=== PATIENT | male | born 1945 | race Caucasian/White ===

== ENCOUNTER → 2020-12-29 11:35 | Outpatient (CLI) | payer MEDICARE, SELFPAY ==
--- NOTE | 2020-12-29 11:37 | DI.US.S_ITS ---
PROCEDURE: US SCROTUM INDICATIONS: RIGHT SCROTAL ENLAGEMENT CONSISTENT WITH HYDROCELE TECHNIQUE: Real-time scanning was performed of the scrotum and testicles, with image documentation. Color and pulse Doppler interrogation was performed of both testicles. COMPARISON: None. FINDINGS: Right: Testicle is normal in size at 4.3 x 2.8 x 2.3 cm, and homogenous in echotexture. Large presumed spermatocele present measuring up to 14 cm with low level internal echoes within the fluid. No hydrocele or varicoceles. Overlying scrotal skin is normal in thickness. Left: Testicle is normal in size at 4.5 x 2.2 x 3.0 cm, and homogeneous in echotexture. Epididymis is normal in overall size and morphology. Multiple epididymal cysts, largest measuring 2.6 cm. No hydrocele or varicoceles. Overlying scrotal skin is normal in thickness. Doppler: Color and pulse Doppler demonstrate normal and symmetric arterial flow in both testicles. IMPRESSION: 1. Normal appearance of the testicles bilaterally. 2. Presumed large right spermatocele measuring up to 14 cm and there multiple left epididymal cysts. Dictated by: Vinicio MOLINA Interpreted: Roger Bull MD on 12/29/2020 at 13:21 Transcribed by: KEVRIN on 12/29/2020 at 13:23 Approved by: Roger Bull M.D. on 12/29/2020 at 14:46
== END ==
PROVIDERS: PCP Internal Medicine; Referring Provider Urology; Visit Provider Urology
DX: N43.3 Hydrocele, unspecified (principal); N50.3 Cyst of epididymis
CPT/HCPCS: 76870

== ENCOUNTER → 2021-01-03 08:17 | Outpatient (CLI) | payer MEDICARE, SELFPAY ==
[2021-01-03 10:01] LABS: COVID19 -Nasal RAPID Negative (Negative)
== END ==
PROVIDERS: PCP Internal Medicine; Referring Provider Specialist; Visit Provider Specialist
DX: Z20.822 Contact with and (suspected) exposure to COVID-19 (principal)
CPT/HCPCS: 87635; C9803

== ENCOUNTER 2021-01-05 06:24 | Day surgery (SDC) | payer MEDICARE, SELFPAY ==
[2020-12-28 13:12] VITALS: BMI 27.1
[2021-01-05] VITALS (10 sets, daily range): BP systolic 106–124; BP diastolic 60–77; PULSE 69–75; RESP 12–18; TEMP 36.4–36.9; O2SAT 95–99; BMI 27.1
--- NOTE | 2021-01-05 | PATH_ITS ---
[facility] Accession Number: [id number] . 01 Material submitted: . testis - SPERMATOCELE SAC . 01 Diagnosis: Spermatocele Sac: Cuboidal epithelial-lined fibrovascular tissue, consistent with hydrocele. Negative for neoplasia. MRV 01/09/2021 1501 Local . 01 Comment: Changes characteristic of a spermatocele are not seen; namely, ciliated epithelium and spermatozoa. . 01 Electronically signed: . Cindy Murrieta MD, Pathologist NPI- [id number] . 01 Gross description: . The specimen is received in formalin, labeled spermatocele sac, and consists of a 4.5 x 3.0 x 2.0 cm knight-pink fibromembranous fragment of soft tissue. Physical Therapist Clinic Director sections are submitted in cassette A1. ([id number]) /[facility] 01/06/2021 1858 Local . 01 Pathologist provided ICD-10: N43.3 . 01 CPT . 222380 Performed at: [facility] [address] [place] [address], [place], [place] [id number] MD Aldiar Hines MD Phone: [phone]
[2021-01-05] MEDS: LACTATED RINGERS 1,000 ML 42 ML IV (07:16)
[2021-01-05] MEDS: ACETAMINOPHEN 325 MG TABLET 975 MG PO (07:24)
[2021-01-05] MEDS: GABAPENTIN 300 MG CAPSULE PO (07:24)
--- NOTE | 2021-01-05 07:42 | PM.PREOP ---
Pre-operative Note COVID-19 COVID-19 status: Negative Result date/Date tested (Pos, Neg/Pending): 01/03/21 Interval Note History & Physical reviewed/Exam performed by Physician: Yes Changes to H&P: No
[2021-01-05] MEDS: CEFAZOLIN 1 GM VIAL 2 GM IV (07:54)
--- NOTE | 2021-01-05 08:21 | SUR.OPER ---
Supine on padded OR bed, head on pillow, arms secured on padded arm boards at <90 degrees abduction, legs uncrossed, safety belt at thigh, tape over blanket over lower legs.
[2021-01-05] MEDS: BUPIVACAINE 0.25% (PF) VIAL 30 ML INJ (08:28)
[2021-01-05] MEDS: BACITRACIN OINT 0.9 GM PCKT 1 APPLIC TOP (09:51)
[2021-01-05] MEDS: BACITRACIN 28 GM OINT 1 APPLIC TOP (10:04)
--- NOTE | 2021-01-05 10:27 | P.OP_ITS ---
Procedure & Clinicians Procedure: Right spermatocelectomy Same procedure as scheduled: Yes Indications: This is a 75-year-old patient who presented with complaints of an enlarged right hemiscrotum. An ultrasound was obtained and revealed findings consistent with either a large hydrocele or a large spermatocele. Patient was counseled regarding of repair of both. Had presents at this time for treatment of either the hydrocele or spermatocele depending on the intraoperative findings. Surgeon: Khang Carlos Click Yes if Unassisted: Yes Anesthesia Type: General Operative Notes Findings: Intraoperatively scrotum and penis were normal. The cord structures and testicle were normal. There was a small hydrocele and a large spermatocele. The spermatocele contained slightly milky fluid. No other adverse finding was noted. The sac was removed in its entirety and the neck was tied off. The sac was intimately applied to the other scrotal occupations. But was dissected off with minimal to moderate difficulty. The spermatocele contained 380 mL of fluid. Closure Type: primary Specimen(s): other (Spermatocele sac) Estimated Blood Loss (mL): 5 Blood products transfused: none Procedure in detail: Procedure in detail: After informed consent was obtained patient was identified and brought to the operating room. She was then placed in a supine position on the table and anesthesia was induced to maintain. Patient was then shaved, prepped, draped in a sterile fashion for right hydrocelectomy. After prepping and draping ensuring an adequate level of a nesthesia a transverse incision was made in the right hemiscrotum. This was done after marking the median relief a with a marking pen. With incision made the dissection was carried down through the layers of the dartos and the intrascrotal contents were delivered. It was apparent that this was a spermatocele. And dissection was begun around the base to free the spermatocele sac from the other scrotal occupations. It was determined that it would be easier to enter the sac and so an incision was made and some of the fluid was sucked out. The sac which was avascular was dissected off the surrounding tissues. Of this was done sequentially and and carefully to avoid the cord structures. The dissection was carried out with blunt sharp and electrocautery dissection. With the dissection down to the ?Neck? of the sac a 3-0 Vicryl was used to tie the neck off. The sac was excised. The points of bleeding were controlled with electrocautery. During the dissection to openings were made in the tunica vaginalis these were reapproximated with 3-0 chromic. Cord block was performed with 0.25% plain Marcaine. The wound was irrigated and points of bleeding were controlled with electrocautery. Testis was returned to the scrotum. The dartos was reapproximated with a running 2-0 chromic gut suture. The skin edges were infiltrated with 0.25% plain Marcaine. And the skin edges were reapproximated with an interrupted vertical mattress of 2-0 chromic. Bacitracin was applied and Telfa, fluffs and a scrotal for support for dressing. Patient was awakened having tolerated the procedure well patient to be discharged home and follow up my office in approximately 10 days. After the procedure phone call was made to the patient's instructions given regarding postoperative care. Complications: none Post-operative Condition: stable Disposition: PACU Plan for aftercare: Patient to be discharged to home
--- NOTE | 2021-01-05 10:55 | SUR.PHASEII ---
assumed care of pt from Pablo WHITTEN.
== END 2021-01-05 11:18 | disposition home or self-care (01) ==
PROVIDERS: PCP Internal Medicine; Referring Provider Urology; Visit Provider Urology
PROC: (CPT 54840; principal; 2021-01-05 07:45)
DX: N43.3 Hydrocele, unspecified (principal); N43.41 Spermatocele of epididymis, single; N40.1 Benign prostatic hyperplasia with lower urinary tract symptoms; N13.8 Other obstructive and reflux uropathy
CPT/HCPCS: 54840; 82962; J0690; J1100; J2405; J2704; J3010

== ENCOUNTER → 2022-06-13 10:38 | Outpatient (CLI) | payer MEDICARE, SELFPAY ==
[2022-06-13 12:46] LABS: Prostate Specific Antigen 0.486 ng/mL (0.10-4.00); Prostate Specific Antigen Scrn 0.486 ng/mL (0.1-4.0)
== END ==
PROVIDERS: PCP Internal Medicine; Referring Provider Urology; Visit Provider Urology
DX: Z12.5 Encounter for screening for malignant neoplasm of prostate (principal); R97.20 Elevated prostate specific antigen [PSA]
CPT/HCPCS: 36415; 84153; G0103

== ENCOUNTER → 2024-01-06 18:24 | Outpatient (CLI) | payer MEDICARE, SELFPAY ==
--- NOTE | 2024-01-06 18:28 | DI.MRI.S_ITS ---
PROCEDURE: MR FOOT RT WO CON INDICATIONS: Pain in right foot TECHNIQUE: Multiphasic, multisequence MRI of the forefoot was performed, without intravenous contrast administration. COMPARISON: None. FINDINGS: Image quality: Excellent. Bones and joints: [id number] midfoot and forefoot joint osteoarthritic changes are seen most notably involving 1st MTP joint. No acute fracture or dislocation. No metatarsal stress fractures. Edema is noted within lateral sesamoid bone of the 1st metatarsal head without definite fracture line. Soft tissues: The visualized plantar foot muscles demonstrate T2 hyperintense signal concerning for muscle strain versus myositis. No discrete intramuscular mass or fluid collection. Thickened flexor hallucis longus tendon at the level of 1st metatarsal head and neck area is seen. Rest of the flexor and extensor tendons appear intact, without tenosynovitis. The distal insertions of the peroneus brevis and longus tendons appear intact. The principal Lisfranc ligament appears intact. No soft tissue ganglion cysts or bursal fluid collections. Sagittal images demonstrate moderate grade partial-thickness tear involving lateral meniscal phalangeal ligament of 1st metatarsal head with proximal retraction of the lateral sesamoid suggestive of low to moderate grade turf toe injury. Soft tissue edema and swelling over dorsum of metatarsal bone is seen. No discrete drainable fluid collection. IMPRESSION: 1. [id number]-[id number]-[id number] midfoot and forefoot joint osteoarthritis. No acute fracture or dislocation. No metatarsal stress fractures. 2. Edema within lateral sesamoid of 1st metatarsal head with suggestion of moderate grade partial-thickness tear involving lateral sesamoid phalangeal ligament of 1st metatarsal head concerning for low to moderate grade turf toe injury. 3. Suggestion of myositis versus muscle strain involving visualized plantar foot muscles. No discrete soft tissue mass or intramuscular fluid collection. 4. Tendinosis involving flexor hallucis longus tendon at the level of 1st metatarsal head and neck and 1st MTP joint. Rest of the extensor and flexor tendons are intact. 5. Soft tissue swelling and edema over dorsal aspect of right foot. Dictated by: Lamont Calvillo M.D. on 01/07/2024 at 14:33 Approved by: Lamont Calvillo M.D. on 01/07/2024 at 14:38
== END ==
PROVIDERS: PCP Internal Medicine; Referring Provider Internal Medicine; Visit Provider Internal Medicine
DX: M19.071 Primary osteoarthritis, right ankle and foot (principal); M79.671 Pain in right foot; M25.474 Effusion, right foot
CPT/HCPCS: 73718

== ENCOUNTER 2024-05-02 10:06 | Emergency (ER) | payer MEDICARE, SELFPAY ==
[2024-05-02] VITALS (47 sets, daily range): BP systolic 99–159; BP diastolic 51–87; PULSE 95–152; RESP 0–54; TEMP 32–37.1; O2SAT 79–100; BMI 28.1
--- NOTE | 2024-05-02 | DI.RAD.S_ITS ---
PROCEDURE: XR CHEST 1V INDICATIONS: trouble breathing TECHNIQUE: One view of the chest was acquired. COMPARISON: [facility], , XR CHEST 1V, 05/02/2024, 10:34. FINDINGS: Surgical changes and devices: There is a stable right-sided PICC line. Truncation of the right distal clavicle can be seen. Lungs and pleura: Low lung volumes can be seen, with poorly defined interstitial type infiltrates, right worse than left. The lungs are better aerated on the current study than on the prior. No pneumothorax or large pleural effusion can be seen. Mediastinum: The cardiac contours are within normal limits. The aorta demonstrates calcification and tortuosity. Bones and chest wall: No suspicious bony lesions. Age-appropriate bony degenerative changes are seen. Overlying soft tissues appear unremarkable. IMPRESSION: Improved aeration since the prior examination, with persistent interstitial type infiltrates seen, right worse than left. Dictated by: Edward Hanson M.D. on 05/02/2024 at 14:35 Approved by: Edward Hanson M.D. on 05/02/2024 at 14:37
--- NOTE | 2024-05-02 10:32 | DI.RAD.S_ITS ---
PROCEDURE: XR CHEST 1V INDICATIONS: suspected sepsis TECHNIQUE: One view of the chest was acquired. COMPARISON: None. FINDINGS: Surgical changes and devices: A right-sided PICC line is seen, with the tip overlying the inferior aspect of the superior vena cava, 2 cm above the cavoatrial junction. Lungs and pleura: Patchy bilateral infiltrates are seen, which are most consolidated within the right lower lobe. Low lung volumes are noted. This causes a crowded appearance to the lung markings and limits evaluation. No pneumothorax or large pleural effusion can be seen. Mediastinum: Mediastinal contours appear normal. Heart size is mildly enlarged. Bones and chest wall: No suspicious bony lesions. Age-appropriate bony degenerative changes are seen. Mild levoconvex scoliotic curvature is noted. Overlying soft tissues appear unremarkable. IMPRESSION: Patchy bilateral infiltrates are seen, with a degree of consolidation seen at the right lung base. Differential diagnosis includes infectious consolidation as well as pulmonary edema. The tip of the right-sided PICC line can be seen overlying the inferior aspect of the superior vena cava. Dictated by: Edward Hanson M.D. on 05/02/2024 at 9:58 Approved by: Edward Hanson M.D. on 05/02/2024 at 10:00
--- NOTE | 2024-05-02 10:36 | EKG_ITS ---
[place] [id number] [place] [id number] Test Date: 2024-05-02 Pat Name: Enrrique Hummel Department: 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
[2024-05-02] MEDS: SODIUM CHLORIDE 0.9% 1,000 ML 1000 ML IV (10:38)
[2024-05-02 10:39] LABS: Add Manual Diff / Slide Review NO; Basophils Absolute Auto 100 /uL (0-100); Basophils Percent Auto 0.5 % (0-2); Eosinophils Absolute Auto 1500 /uL (0-450); Eosinophils Percent Auto 8.8 % (2-4); Hematocrit 36.4 % (41-53); Lymphocytes Absolute Auto 1900 /uL (1100-4500); Lymphocytes Percent Auto 11.2 % (25-40); Mean Corpuscular Hemoglobin 29.8 PG (26-34); Mean Corpuscular Volume 90.3 fL (80-100); Monocytes Absolute Auto 700 /uL (0-900); Monocytes Percent Auto 3.8 % (3-14); Neutrophils Absolute Auto 12900 /uL (1500-7000); Neutrophils Percent Auto 75.7 % (50-75); Platelet Count 698 X10^3/uL (150-400); Red Blood Cell Count 4.04 X10^6/uL (4.5-5.9); Red Cell Distribution Width 15.3 % (11.6-14.8)
--- NOTE | 2024-05-02 10:41 | DI.CT.S_ITS ---
PROCEDURE: CT HEAD/BRAIN WO CON INDICATIONS: confusion TECHNIQUE: Noncontrast 4.5 mm thick angled axial sections acquired from the foramen magnum to the vertex, with coronal and sagittal reformats. For radiation dose reduction, the following was used: automated exposure control, adjustment of mA and/or kV according to patient size. COMPARISON: None. FINDINGS: Image quality: Diagnostic. CSF spaces: Basal cisterns are patent. No extra-axial fluid collections. The ventricles are symmetric in size and shape. Brain: No intracranial bleeds or masses. There is cerebral volume loss for age, with resultant ventricular and sulcal prominence. There are periventricular and deep white matter chronic small vessel ischemic changes. There is intracranial internal carotid artery atherosclerosis. Skull and face: Calvarium and visualized facial bones appear intact, without suspicious lesions. Sinuses: At least moderate mucosal thickening can be seen within the maxillary sinuses and the sphenoid sinuses. Milder mucosal can be seen elsewhere within the paranasal sinuses. No abnormal fluid is seen within the mastoid air cells. IMPRESSION: No acute intracranial pathology. Paranasal sinus disease noted. Dictated by: Edward Hanson M.D. on 05/02/2024 at 10:15 Approved by: Edward Hanson M.D. on 05/02/2024 at 10:16
[2024-05-02 10:45] LABS: INR 1.3 (0.9-1.3); Prothrombin Time 14.5 SECONDS (9.4-12.5)
[2024-05-02 10:48] LABS: Lactate (Lactic Acid) 1.4 mmol/L (0.7-2.1); PTT Partial Thromboplastin Tim 26 SECONDS (25.1-36.5)
[2024-05-02 10:49] LABS: Alanine Aminotransferase 43 IU/L (<50); Albumin 3.3 g/dL (3.5-5.0); Albumin Globulin Ratio 0.8 (1.0-2.8); Alkaline Phosphatase 93 U/L (38-126); Aspartate Aminotransferase 45 IU/L (17-59); BUN Creatinine Ratio 19.1 (6-22); Bilirubin Total 0.5 mg/dL (0.2-1.3); Blood Urea Nitrogen 33 mg/dL (9-20); Calcium 11.7 mg/dL (8.4-10.2); Carbon Dioxide 26 mmol/L (22-32); Chloride 100 mmol/L (98-107); Estimated Glomerular Filt Rate 40 mL/min (>60); Globulin 4.3 g/dL (1.7-4.1); Glucose 113 mg/dL (80-110); HEMOLYSIS < 15 (0-50); Lipase 200 U/L (23-300); Potassium 3.8 mmol/L (3.4-5.1); Sodium 135 mmol/L (137-145); Total Protein 7.6 g/dL (6.3-8.2)
[2024-05-02 11:05] LABS: Procalcitonin 0.142 ng/mL (<0.5)
--- NOTE | 2024-05-02 11:26 | ED_ITS ---
HPI - Altered Mental Status General Chief Complaint: Altered Mental Status Stated Complaint: Confusion Time Seen by Provider: 05/02/24 10:41 Mode of arrival: EMS History of Present Illness HPI narrative: 78-year-old male status post recent right foot external fixator surgery, ongoing infection, followed by [facility], PICC line in place with IV antibiotics infused daily per , noted by to have 2 days duration of cough, seemed newly confused yesterday with worse confusion today. He has not usually on oxygen, had low oxygen pulse ox readings at home 84-92% varied. relays complicated infectious disease history, pneumonia 1 or 2 years ago, possible lung mass, had bronchoscopy and repeat CT chest imaging, possible MRSA infection, felt to be scar tissue. More recently September 2023 had ankle pain, podiatry consult, orthopedic surgery consult, MRI study, eventually last month March 2024 had ongoing infectious disease consultation, bone biopsy, possible osteomyelitis, IV antibiotics via PICC line, no internal fixation for suspected malunion or stress fracture foot area, underwent external fixator surgery by Podiatry at [facility] proximally now 6 weeks ago, still having daily IV antibiotics via PICC line. does not know the name of the daily antibiotic, does not recognize vancomycin or ceftriaxone or Levaquin antibiotics by name, she will retrieve the information from home. Fall 2 days ago, no known head injury. Recent respiratory illness noted. No incontinence of urine. No seizure activity. No drug or alcohol use known. He has not usually confused. He has not usually on oxygen at home. Related Data Home Medications Medication Instructions Recorded Confirmed cholecalciferol (vitamin D3) 50 50 mcg PO DAILY 12/22/20 06/15/22 mcg (2,000 unit) tablet ferrous gluconate 1 tab PO DAILY 12/22/20 06/15/22 finasteride 5 mg tablet 5 mg PO DAILY 12/22/20 06/15/22 multivitamin 1 tab PO DAILY 12/22/20 06/15/22 naproxen sodium 220 mg capsule 220 mg PO DAILY 12/22/20 06/15/22 (Aleve) tamsulosin 0.4 mg capsule (Flomax) 0.4 mg PO DAILY 12/22/20 06/15/22 turmeric 400 mg capsule 1,000 mg PO DAILY 12/22/20 06/15/22 Allergies Allergy/AdvReac Type Severity Reaction Status Date / Time No Known Drug Allergies Allergy Verified 10/11/21 09:07 Review of Systems Review of Systems Narrative: See HPI Patient History Medical History (Updated 05/02/24 @ 17:08 by Semaj Rivera MD) Spermatocele BPH w urinary obs/LUTS Right hydrocele Surgical History History of hydrocelectomy History of knee replacement Hx of appendectomy Social History marital status: number of children: 0 household members: spouse Smoking Status: Never smoker alcohol intake: current caffeine: Yes Type(s) of exercise: bicycling Smoking Status: Never smoker alcohol intake frequency: 0-2 drinks per day Substance Use Type: does not use Exam Narrative Exam Narrative: GENERAL: Well-developed patient, in mild distress. HEAD: Atraumatic. Normocephalic. EYES: Pupils equal round and reactive. Extraocular motions intact. No scleral icterus. No injection or drainage. ENT: Nose without bleeding, purulent drainage. Throat without erythema, tonsillar hypertrophy or exudate. Airway patent. NECK: Trachea midline. Non tender CARDIOVASCULAR: Irregularly irregular, 2/6 systolic murmur noted ( says that he has a known murmur), no obvious rub RESPIRATORY: Clear to auscultation. Crackles [id number]-[id number]-left base, no obvious wheeze, no respiratory distress, no retractions, speaks in full sentences. GASTROINTESTINAL: Abdomen soft, non-tender, nondistended. EXTREMITIES: External fixator left lower extremity ankle foot area in place, visible PEG sites not obviously red or inflamed, without obvious edema. No obvious redness or lymphangitis streaking RLE BACK: Nontender without deformity or crepitance. No flank tenderness. NEURO: AOx3. Motor functions grossly nonfocal SKIN: No rash or erythema of visible areas Initial Vital Signs Initial Vital Signs: Vital Signs Temperature 98.2 F 05/02/24 10:33 Pulse Rate 113 H 05/02/24 10:33 Respiratory Rate 26 H 05/02/24 10:33 Blood Pressure 121/61 05/02/24 10:33 Pulse Oximetry 90 L 05/02/24 10:33 Oxygen Delivery Method Room Air 05/02/24 10:33 Course Orders Ordered: Discontinued Medications Doxycycline Hyclate (Doxycycline Hyclate 100 Mg Tablet) 100 mg PO NOW ONE Stop: 05/02/24 13:21 Last Admin: 05/02/24 14:12 Dose: 100 mg Documented By: KALIA Furosemide (Furosemide 40 Mg/4 Ml Vial) 40 mg IV NOW ONE Stop: 05/02/24 15:11 Last Admin: 05/02/24 15:29 Dose: 40 mg Documented By: GERRY Sodium Chloride (Normal Saline 0.9%) 1,000 mls @ 1,000 mls/hr IV BOLUS ONE Stop: 05/02/24 11:31 Last Infusion: 05/02/24 11:28 Dose: Infused Documented By: Admin: 05/02/24 10:38 Dose: 1,000 mls/hr Documented By: GERRY Ceftriaxone Sodium 1,000 mg/ (Sodium Chloride) 100 mls @ 200 mls/hr IV NOW ONE Stop: 05/02/24 13:21 Last Infusion: 05/02/24 15:01 Dose: Infused Documented By: Admin: 05/02/24 14:12 Dose: 200 mls/hr Documented By: KALIA Vancomycin HCl 2,000 mg/ (Sodium Chloride) 500 mls @ 250 mls/hr IV NOW ONE Stop: 05/02/24 14:03 Last Infusion: 05/02/24 18:11 Dose: Infused Documented By: Admin: 05/02/24 14:45 Dose: 250 mls/hr Documented By: GERRY Lorazepam (Lorazepam 2 Mg/Ml Inj) 1 mg IV NOW ONE Stop: 05/02/24 18:24 Last Admin: 05/02/24 18:46 Dose: 1 mg Documented By: GERRY Ondansetron HCl (Ondansetron 4 Mg/2 Ml Inj) 4 mg IV NOW PRN PRN Reason: Nausea And Vomiting Ondansetron HCl (Ondansetron 4 Mg Odt) 4 mg SL NOW PRN PRN Reason: Nausea And Vomiting Vital Signs Vital signs: Vital Signs - 8 hr 05/02/24 10:33 05/02/24 10:43 05/02/24 11:00 Temperature 98.2 F Pulse Rate 113 H 109 H 97 H Respiratory Rate 26 H 29 H 0 L Blood Pressure 121/61 Pulse Oximetry 90 L 93 95 Oxygen Delivery Method Room Air Oxygen Flow Rate 2 Fraction of Inspired Oxygen 05/02/24 11:24 05/02/24 11:24 05/02/24 11:30 Temperature Pulse Rate 101 H 96 H Respiratory Rate 31 H 29 H Blood Pressure 131/70 Pulse Oximetry 94 94 Oxygen Delivery Method Oxygen Flow Rate Fraction of Inspired Oxygen 05/02/24 11:30 05/02/24 11:40 05/02/24 11:40 Temperature Pulse Rate 109 H Respiratory Rate 30 H Blood Pressure 131/67 125/70 Pulse Oximetry 93 Oxygen Delivery Method Oxygen Flow Rate Fraction of Inspired Oxygen 05/02/24 11:50 05/02/24 11:50 05/02/24 12:00 Temperature Pulse Rate 117 H 95 H Respiratory Rate 21 31 H Blood Pressure 117/74 Pulse Oximetry 94 93 Oxygen Delivery Method Nasal Cannula Oxygen Flow Rate 2 Fraction of Inspired Oxygen 05/02/24 12:15 05/02/24 12:15 05/02/24 12:20 Temperature Pulse Rate 108 H 107 H Respiratory Rate 28 H 26 H Blood Pressure 132/72 Pulse Oximetry 91 92 Oxygen Delivery Method Oxygen Flow Rate Fraction of Inspired Oxygen 05/02/24 12:20 05/02/24 12:30 05/02/24 12:30 Temperature Pulse Rate 103 H Respiratory Rate 27 H Blood Pressure 127/74 133/77 Pulse Oximetry 94 Oxygen Delivery Method Oxygen Flow Rate Fraction of Inspired Oxygen 05/02/24 12:40 05/02/24 12:40 05/02/24 12:50 Temperature Pulse Rate 103 H Respiratory Rate 26 H Blood Pressure 127/71 130/77 Pulse Oximetry 95 Oxygen Delivery Method Oxygen Flow Rate Fraction of Inspired Oxygen 05/02/24 12:50 05/02/24 13:00 05/02/24 13:00 Temperature Pulse Rate 101 H 103 H Respiratory Rate 27 H 28 H Blood Pressure 123/75 Pulse Oximetry 94 95 Oxygen Delivery Method Oxygen Flow Rate Fraction of Inspired Oxygen 05/02/24 13:10 05/02/24 13:10 05/02/24 13:20 Temperature Pulse Rate 100 H 100 H Respiratory Rate 26 H 26 H Blood Pressure 119/75 Pulse Oximetry 92 95 Oxygen Delivery Method Oxygen Flow Rate Fraction of Inspired Oxygen 05/02/24 13:20 05/02/24 13:30 05/02/24 13:33 Temperature Pulse Rate 100 H 100 H Respiratory Rate 26 H 29 H Blood Pressure 129/74 Pulse Oximetry 95 94 Oxygen Delivery Method Oxygen Flow Rate Fraction of Inspired Oxygen 05/02/24 13:33 05/02/24 13:40 05/02/24 13:40 Temperature Pulse Rate 101 H Respiratory Rate 28 H Blood Pressure 130/74 135/78 Pulse Oximetry 95 Oxygen Delivery Method Oxygen Flow Rate Fraction of Inspired Oxygen 05/02/24 13:50 05/02/24 13:50 05/02/24 14:00 Temperature Pulse Rate 101 H 98 H Respiratory Rate 29 H 28 H Blood Pressure 132/73 Pulse Oximetry 92 91 Oxygen Delivery Method Oxygen Flow Rate Fraction of Inspired Oxygen 05/02/24 14:00 05/02/24 14:10 05/02/24 14:10 Temperature Pulse Rate 97 H Respiratory Rate 16 Blood Pressure 129/69 120/64 Pulse Oximetry 92 Oxygen Delivery Method Oxygen Flow Rate Fraction of Inspired Oxygen 05/02/24 14:20 05/02/24 14:20 05/02/24 14:30 Temperature Pulse Rate 97 H 95 H Respiratory Rate 23 Blood Pressure 123/67 Pulse Oximetry 92 Oxygen Delivery Method Oxygen Flow Rate Fraction of Inspired Oxygen 05/02/24 14:30 05/02/24 14:40 05/02/24 14:40 Temperature Pulse Rate 96 H Respiratory Rate 26 H Blood Pressure 120/58 L 134/65 Pulse Oximetry 93 Oxygen Delivery Method Nasal Cannula Oxygen Flow Rate 2 Fraction of Inspired Oxygen 05/02/24 14:55 05/02/24 14:55 05/02/24 15:00 Temperature Pulse Rate 136 H 119 H Respiratory Rate 54 H 34 H Blood Pressure 136/51 L Pulse Oximetry 79 L 91 Oxygen Delivery Method Nasal Cannula Non -Rebreather Oxygen Flow Rate 2 15 Fraction of Inspired Oxygen 05/02/24 15:00 05/02/24 15:10 05/02/24 15:10 Temperature Pulse Rate 119 H Respiratory Rate 36 H Blood Pressure 119/57 L 125/63 Pulse Oximetry 94 Oxygen Delivery Method Non -Rebreather Oxygen Flow Rate 15 Fraction of Inspired Oxygen 05/02/24 15:36 05/02/24 16:41 Temperature Pulse Rate Respiratory Rate Blood Pressure 137/75 159/82 H Pulse Oximetry Oxygen Delivery Method Oxygen Flow Rate Fraction of Inspired Oxygen 40 40 MDM - Altered Mental Status Lab Data Attestation: I reviewed the patient's lab results. Lab results narrative: White blood cell count 75909, hemoglobin 12, platelets [id number]. Basic metabolic panel shows BUN 33 with creatinine 1.73, glucose 113. LFTs normal, lipase normal. Lactate 1.4 normal 05/02/24 10:30 05/02/24 10:30 Labs: Lab Results 05/02/24 05/02/24 Range/Units 10:30 15:52 WBC 17.0 H (4.5-11.0) X10^3/uL RBC 4.04 L (4.5-5.9) X10^6/uL Hgb 12.0 L (13.5-17.5) g/dL Hct 36.4 L (41-53) % MCV 90.3 (80-100) fL MCH 29.8 (26-34) PG MCHC 33.0 (30-36) % RDW 15.3 H (11.6-14.8) % Plt Count 698 H (150-400) X10^3/uL Neut % (Auto) 75.7 H (50-75) % Lymph % (Auto) 11.2 L (25-40) % Curry % (Auto) 3.8 (3-14) % Eos % (Auto) 8.8 H (2-4) % Baso % (Auto) 0.5 (0-2) % Neut # (Auto) 48759 H (0198-9045) /uL Lymph # (Auto) 1900 (4705-1023) /uL Curry # (Auto) 700 (0-900) /uL Eos # (Auto) 1500 H (0-450) /uL Baso # (Auto) 100 (0-100) /uL PT 14.5 H (9.4-12.5) SECONDS INR 1.3 (0.9-1.3) APTT 26 (25.1-36.5) SECONDS ABG Sample Site Right radial ABG pH 7.49 H (7.35-7.45) ABG pCO2 32.3 L (35-45) mmHg ABG pO2 70 L (80-100) mmHg ABG HCO3 25 (23-27) mmol/L ABG Total CO2 24 (23-27) mmol/L ABG O2 Saturation 95 (95-100) % ABG Base Excess 1.5 (-2-3) mmol/L Stephen Test Positive Respiration Rate 10 O2 Delivery Device Bipap Mode of Support Bi-level ventilation FiO2 % 40 % % Pressure Support 6 PEEP or CPAP 8 Sodium 135 L (137-145) mmol/L Potassium 3.8 (3.4-5.1) mmol/L Chloride 100 (98-107) mmol/L Carbon Dioxide 26 (22-32) mmol/L BUN 33 H (9-20) mg/dL Creatinine 1.73 H (0.66-1.25) mg/dL Estimated GFR 40 L (>60) mL/min BUN/Creatinine Ratio 19.1 (6-22) Glucose 113 H (80-110) mg/dL Lactate 1.4 (0.7-2.1) mmol/L Calcium 11.7 H (8.4-10.2) mg/dL Total Bilirubin 0.5 (0.2-1.3) mg/dL AST 45 (17-59) IU/L ALT 43 (<50) IU/L Alkaline Phosphatase 93 (38-126) U/L Troponin I 0.020 (0.01-0.034) ng/mL NT-Pro-B Natriuret Pep 1120 H (<450) pg/mL Total Protein 7.6 (6.3-8.2) g/dL Albumin 3.3 L (3.5-5.0) g/dL Globulin 4.3 H (1.7-4.1) g/dL Albumin/Globulin Ratio 0.8 L (1.0-2.8) Lipase 200 (23-300) U/L Procalcitonin 0.142 (<0.5) ng/mL Chlamy pneumoniae PCR Not detected (Not Detect) Adenovirus (PCR) Not detected (Not Detect) B. pertussis DNA (PCR) Not detected (Not Detect) B.parapertussis DNA PCR Not detected (Not Detecte) Coronavirus OC43 (PCR) Not detected (Not Detect) Coronavirus HKU1 (PCR) Not detected (Not Detect) Coronavirus 229E (PCR) Not detected (Not Detect) SARS-CoV-2 (PCR) Not detected (Not Detecte) Coronavirus NL63 (PCR) Not detected (Not Detect) Human Metapneumovir PCR Not detected (Not Detect) Influenza Type A (PCR) Not detected (Not Detect) Influenza Type B (PCR) Not detected (Not Detect) M. pneumoniae (PCR) Not detected (Not Detect) Parainfluenza 1 (PCR) Not detected (Not Detect) Parainfluenza 2 (PCR) Not detected (Not Detect) Parainfluenza 3 (PCR) Not detected (Not Detect) Parainfluenza 4 (PCR) Not detected (Not Detect) RSV (PCR) Not detected (Not Detect) Entero/Rhino (PCR) Not detected (Not Detect) Urine Dip Bedside Urine Glucose Negative Bedside Urine Bilirubin - Negative Bedside Urine Ketone - Negative Urine Specific [place] 1.005 Bedside Urine Occult Blood - Negative Bedside Urine pH 6.5 Bedside Urine Protein - Negative Bedside Urine Urobilinogen - Negative Bedside Urine Nitrite - Negative Bedside Urine Leukocytes - Negative Esterase Imaging Data CT scan - head: Radiologist's Impression: [place] [address] CT Scan Report Signed Patient: Enrrique Hummel MR#: [id number] : 1945 Acct:[id number] Age/Sex: 78 / M Date of Service: 05/02/24 Loc: ED Accession Number: [id number] Procedure: CT head/brain wo con Ordering Provider: Semaj Rivera MD PROCEDURE: CT HEAD/BRAIN WO CON INDICATIONS: confusion TECHNIQUE: Noncontrast 4.5 mm thick angled axial sections acquired from the foramen magnum to the vertex, with coronal and sagittal reformats. For radiation dose reduction, the following was used: automated exposure control, adjustment of mA and/or kV according to patient size. COMPARISON: None. FINDINGS: Image quality: Diagnostic. CSF spaces: Basal cisterns are patent. No extra-axial fluid collections. The ventricles are symmetric in size and shape. Brain: No intracranial bleeds or masses. There is cerebral volume loss for age, with resultant ventricular and sulcal prominence. There are periventricular and deep white matter chronic small vessel ischemic changes. There is intracranial internal carotid artery atherosclerosis. Skull and face: Calvarium and visualized facial bones appear intact, without suspicious lesions. Sinuses: At least moderate mucosal thickening can be seen within the maxillary sinuses and the sphenoid sinuses. Milder mucosal can be seen elsewhere within the paranasal sinuses. No abnormal fluid is seen within the mastoid air cells. IMPRESSION: No acute intracranial pathology. Paranasal sinus disease noted. Dictated by: Edward Hanson M.D. on 05/02/2024 at 10:15 Approved by: Edward Hanson M.D. on 05/02/2024 at 10:16 CT angiogram chest: Radiologist's Impression: [address] [address] [address] Scan Report Signed Patient: Enrrique Hummel MR#: [id number] : 1945 Acct:[id number] Age/Sex: 78 / M Date of Service: 05/02/24 Loc: ED Accession Number: [id number] Procedure: CT angio chest PE protocol Ordering Provider: Semaj Rivera MD PROCEDURE: CT ANGIO CHEST PE PROTOCOL INDICATIONS: sudden dyspnea, hx ext fixator RLE, eval for PE, GFR 40 TECHNIQUE: After the administration of intravenous contrast, 2 mm thick sections acquired from the pulmonary apices to the posterior costophrenic angles. 3-dimensional maximum intensity projection (MIP) coronal and sagittal reformats were then acquired through the thorax. For radiation dose reduction, the following was used: automated exposure control, adjustment of mA and/or kV according to patient size. COMPARISON: [facility], CR, XR CHEST 1V, 05/02/2024, 14:55. [facility], CT, CT HEAD/BRAIN WO CON, 05/02/2024, 10:53. [facility], CR, XR CHEST 1V, 05/02/2024, 10:34. FINDINGS: Image quality: There is streak artifact seen through the level of the shoulders. Pulmonary arteries: Pulmonary arteries are normal in size, and demonstrate no intraluminal filling defects to suggest central pulmonary embolism. Lower Neck: No enlarged lymph nodes. Thyroid: The thyroid is not well seen. Axillae: No enlarged lymph nodes. Chest Wall: Unremarkable. Bones: Accentuated thoracic kyphosis is seen. Age-appropriate bony degenerative changes are seen. Lungs and Pleura: Patchy, poorly defined interstitial type bilateral infiltrates are seen, which are worst involving the right lower lobe. No pneumothorax or pleural effusions are seen. The central airways are patent. A few calcified pulmonary granulomas are seen. Heart: Heart size is normal. No pericardial effusion. Moderate to prominent coronary artery calcification can be seen. Thoracic Vessels: No aortic aneurysm. Mediastinum and Roseann: Mildly enlarged mediastinal lymph nodes are seen, including a right precarinal lymph node measuring 14 by 13 mm. Mild enlargement of right perihilar lymph nodes are seen. Calcified mediastinal lymph nodes can be seen. Esophagus: No wall thickening. No hiatal hernia. Upper Abdomen: Calcified granulomas can be seen within the spleen. The visualized portions of the upper abdominal structures are otherwise unremarkable for imaging technique. IMPRESSION: No pulmonary embolus. Significant patchy interstitial type pulmonary opacities are seen, which are worst involving the right lower lobe. Mildly enlarged mediastinal and right perihilar lymph nodes are seen, which are considered to be reactive. Additional findings: Moderate to prominent coronary artery calcification Prior granulomatous exposure. Dictated by: Edward Hanson M.D. on 05/02/2024 at 15:52 Approved by: Edward Hanson M.D. on 05/02/2024 at 15:55 ECG Data Attestation: I personally reviewed and interpreted this ECG as follows: Interpretation: 1036, Atrial fibrillation with rapid rate 104, incomplete right bundle branch block pattern. QRS 110, QTC 399. Repeat EKG at 1:57 p.m., sinus tachycardia with first-degree AV block, AR 218, QRS 106, QTC 453. Repeat EKG at 1456, sinus tachycardia with first-degree AV block, incomplete right bundle branch block again seen. No obvious ST segment elevation or depression changes. [facility] Narrative Medical decision making narrative: 78-year-old male on IV antibiotics via a right PICC line for right foot ankle fracture, possible infection unclear if there is osteomyelitis, followed by infectious diseases and podiatry at [facility], daily single antibiotic infusions per , who can not name of the antibiotic, noted to have 2 days duration of cough and confusion, not usually on oxygen. Borderline sats noted, crackles on examination. External fixator right lower extremity noted, pin sites seemed to look okay. CT head, chest x-ray, respiratory panel pending. Labs pending CT head no acute changes, see radiology report. Chest x-ray. Impressions: ?patchy bilateral infiltrates are seen, with the degree of consolidation seen at the right lung base. Differential diagnosis include infectious consolidation as well as pulmonary edema. Tip of the right sided PICC line can be seen overlying the inferior aspect of the superior vena cava.? See radiology report Respiratory panel negative Blood cultures requested. we will go home to see if she can find the name of the antibiotic that is be given daily, she does not recognize ceftriaxone or Levaquin or vancomycin names. Blood culture sent, anticipate antibiotics given. Consider admission. We will contact hospitalist for admission here versus transfer to [place] or elsewhere. We will initiate IV ceftriaxone and oral doxycycline for now, pending arrival of to clarify what ongoing PICC line infusion antibiotic regimen has been. 1330, case discussed with hospitalist here Dr Wilkinson, believes patient would benefit from higher level of care with infectious diseases, consider transfer to [facility] where he has established infectious disease and podiatric care. Patient/ agreeable, will contact [place] 1400, case discussed with [facility] hospitalist Dr Parsons, he was able to review records there, patient has been receiving daptomycin, agrees with ceftriaxone here and doxycycline, would add vancomycin given his history of MRSA in the past. Anticipate transfer there, they will consult with Pulmonary and Infectious Disease Services. Await call back from [facility] IV Vancomycin also ordered. Initial EKG suspicious for atrial fibrillation, sinus rhythm on monitor suspected, repeat EKG shows sinus tachycardia with first-degree AV block, no atrial fibrillation on 2nd EKG noted. Patient may not necessarily have atrial fibrillation, or perhaps it might be paroxysmal, on repeat EKG seems to be in sinus rhythm. 1500, patient started coughing, had increased heart rate, feels more short of breath, drop in sats. Repeat chest x-ray requested to evaluate for pneumothorax. Patient has no pneumonia, consider mucus plugging, SVN requested with respiratory therapy. Repeat EKG shows sinus tachycardia with 1st AV block noted again. Repeat chest x-ray to me looks similar, prior reading mentioned infiltrate versus pulmonary edema, consider CHF, add BNP to original draw, trial of BiPAP, ABG requested. We will update [facility], would need non floor bed, likely ICU if on BiPAP. BNP added in his elevated 1180 noted, we will add IV Lasix, some component of CHF suspected. 1530, case discussed with [facility] cardiac cath tech Dr. Sidhu, requests CT angio, likely will be accepting to their ICU, requests call back with CTA chest results. ABG on BiPAP. PH 7.487, pCO2 32.3, PaO2 69.7 noted. CTA chest shows patchy infiltrates, no pulmonary embolus. See radiology report Accepted for transfer to ICU [facility] transportation to be arranged Critical Care Time Critical Care Time Critical Care Time: Yes Total Critical Care Time: 45 Attestation: The high probability of a clinically significant, sudden or life threatening deterioration of the [cardiopulmonary, musculoskeletal, Orthopedic] system(s) required my full and direct attention, intervention and personal management. Worsening respiratory distress requiring BiPAP intervention, after IV antibiotics for pneumonia, worsening oxygen requirement, complex recent medical history with infectious disease and podiatric surgical consultations at alternate facility, coordination with alternate facility for return to higher level of care as recommended with our hospitalist here. Numerous in-house and external facility consultations. The aggregate critical care time was [45] minutes. This time is in addition to time spent performing reported procedures but includes the following: [x] Data Review and interpretation x Patient assessment and monitoring of vital signs [x] Documentation [x] Medication orders and management Discharge Plan Departure Patient Disposition: [facility] Clinical Impression: Confusion, Pneumonia, Respiratory distress, Congestive heart failure Prescriptions: No Action tamsulosin [Flomax] 0.4 mg capsule 0.4 mg PO DAILY finasteride 5 mg tablet 5 mg PO DAILY naproxen sodium [Aleve] 220 mg capsule 220 mg PO DAILY ferrous gluconate 1 tab PO DAILY multivitamin Tablet 1 tab PO DAILY cholecalciferol (vitamin D3) 50 mcg (2,000 unit) tablet 50 mcg PO DAILY turmeric 400 mg capsule 1,000 mg PO DAILY Referrals: Khang Hunt MD [Primary Care Provider] -
[2024-05-02 11:32] LABS: Adenovirus Not Detected (Not Detect); B. parapertussis Not Detected (Not Detecte); Bordetella pertussis Not Detected (Not Detect); Chlamydophila pneumoniae Not Detected (Not Detect); Coronavirus 229E Not Detected (Not Detect); Coronavirus HKU1 Not Detected (Not Detect); Coronavirus NL 63 Not Detected (Not Detect); Coronavirus OC43 Not Detected (Not Detect); Human Metapneumovirus Not Detected (Not Detect); Human Rhinovirus/Enterovirus Not Detected (Not Detect); Influenza A Not Detected (Not Detect); Influenza B Not Detected (Not Detect); Mycoplasma pneumoniae Not Detected (Not Detect); Parainfluenza Virus 1 Not Detected (Not Detect); Parainfluenza Virus 2 Not Detected (Not Detect); Parainfluenza Virus 3 Not Detected (Not Detect); Parainfluenza Virus 4 Not Detected (Not Detect); Respiratory Syncytial Virus Not Detected (Not Detect); SARS- CoV-2 Not Detected (Not Detecte)
--- NOTE | 2024-05-02 11:54 | PC.NURSE ---
Pt presents with external bone fixator device in right lower leg. Pt family states he had a positive result for MRSA; family also states he is being treated w/ IV antibiotics at home for possible osteomyeletis but states that they were told it was not osteomyelitis as well. Pt denies pain. Pt tachypnic. Pt family states he just recently started to breathe faster at home. Pt family states he ambulated to bathroom and his oxygen dropped to 84% at home on RA. Pt family states he has new onset confusion as well.
--- NOTE | 2024-05-02 13:34 | P.CALLCOV_ITS ---
Call Coverage Note Note Narrative of Care Provided: 78 M medicine asked to evaluate for admission to [facility]. Per triage note: Pt presents with external bone fixator device in right lower leg. Pt family states he had a positive result for MRSA; family also states he is being treated w/ IV antibiotics at home for possible osteomyeletis but states that they were told it was not osteomyelitis as well. Pt denies pain. Pt tachypnic. Pt family states he just recently started to breathe faster at home. Pt family states he ambulated to bathroom and his oxygen dropped to 84% at home on RA. Pt family states he has new onset confusion as well. He is on IV daptomycin per review of outpatient pharmacology review that I can see. Given this patient's external hardware and apparent sepsis, I recommend transfer for higher level of care to a center with infectious disease consultat ion available. As for now, can give cefepime and vancomycin empirically. Recommend UA in addition to current evaluation thus far.
--- NOTE | 2024-05-02 13:37 | PC.NURSE ---
Addendum entered by Isaac Stephen CNA 05/02/24 15:41: pt initially accepted under Dr. Parsons @3670. Pt has change of condition and Dr. Rivera says to recontact [place] to see if service needs to be changed. Spoke to Weston RN with [facility] and relayed changes, Weston says he will talk to warehouse forklift operator and call back. @1533 Weston calls back with [facility] brake operator sheet metal Dr. Sidhu and is connected to Dr. Rivera. @1542 pt is accepted under Dr. Sidhu at [facility]. [facility] to call back with bed assignment. Original Note: Called [facility] @1337 and spoke to Anaid. Face sheet faxed @[phone] and images pushed @[phone].
--- NOTE | 2024-05-02 13:57 | EKG_ITS ---
[address] [address] Test Date: 2024-05-02 Pat Name: Enrrique Hummel Department: [facility] Room: Gender: Male Party Host: CHALINO : 1945 Requested By: Order Number: [id number] Reading MD: Harish Wilkinson Measurements Intervals [place] Rate: 101 P: 43 NH: 218 QRS: 19 QRSD: 106 T: 6 QT: 350 QTc: 453 Interpretive Statements Sinus tachycardia with 1st degree AV block with premature atrial complexes Incomplete right bundle branch block Nonspecific T wave abnormality Electronically Signed On 05-02-2024 15:35:36 PST by Harish Wilkinson
[2024-05-02] MEDS: DOXYCYCLINE HYCLATE 100 MG TABLET PO (14:12)
[2024-05-02] MEDS: cefTRIAXone 1,000 MG in SODIUM CHLORIDE 0.9% 100 ML 200 MG IV (14:12)
[2024-05-02] MEDS: VANCOMYCIN 2,000 MG in SODIUM CHLORIDE 0.9% 500 ML 250 MG IV (14:45)
--- NOTE | 2024-05-02 14:56 | EKG_ITS ---
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
--- NOTE | 2024-05-02 15:11 | PC.NURSE ---
Pt repositioned/sat up to urinate into condom cath and to cough. Right after brief coughing fit pt HR shot up from 90s to 140s RVR with diffuse sweating. Pt O2 sat dropped from 94% 2L to 79% on 2L. Repeat EKG promptly performed. Chest xray performed. MD at bedside reviewing both. MD and RT discussion of bipap.
[2024-05-02] MEDS: FUROSEMIDE 40 MG/4 ML VIAL IV (15:29)
--- NOTE | 2024-05-02 15:41 | DI.CT.S_ITS ---
PROCEDURE: CT ANGIO CHEST PE PROTOCOL INDICATIONS: sudden dyspnea, hx ext fixator RLE, eval for PE, GFR 40 TECHNIQUE: After the administration of intravenous contrast, 2 mm thick sections acquired from the pulmonary apices to the posterior costophrenic angles. 3-dimensional maximum intensity projection (MIP) coronal and sagittal reformats were then acquired through the thorax. For radiation dose reduction, the following was used: automated exposure control, adjustment of mA and/or kV according to patient size. COMPARISON: [facility], CR, XR CHEST 1V, 05/02/2024, 14:55. [facility], CT, CT HEAD/BRAIN WO CON, 05/02/2024, 10:53. [facility], CR, XR CHEST 1V, 05/02/2024, 10:34. FINDINGS: Image quality: There is streak artifact seen through the level of the shoulders. Pulmonary arteries: Pulmonary arteries are normal in size, and demonstrate no intraluminal filling defects to suggest central pulmonary embolism. Lower Neck: No enlarged lymph nodes. Thyroid: The thyroid is not well seen. Axillae: No enlarged lymph nodes. Chest Wall: Unremarkable. Bones: Accentuated thoracic kyphosis is seen. Age-appropriate bony degenerative changes are seen. Lungs and Pleura: Patchy, poorly defined interstitial type bilateral infiltrates are seen, which are worst involving the right lower lobe. No pneumothorax or pleural effusions are seen. The central airways are patent. A few calcified pulmonary granulomas are seen. Heart: Heart size is normal. No pericardial effusion. Moderate to prominent coronary artery calcification can be seen. Thoracic Vessels: No aortic aneurysm. Mediastinum and Roseann: Mildly enlarged mediastinal lymph nodes are seen, including a right precarinal lymph node measuring 14 by 13 mm. Mild enlargement of right perihilar lymph nodes are seen. Calcified mediastinal lymph nodes can be seen. Esophagus: No wall thickening. No hiatal hernia. Upper Abdomen: Calcified granulomas can be seen within the spleen. The visualized portions of the upper abdominal structures are otherwise unremarkable for imaging technique. IMPRESSION: No pulmonary embolus. Significant patchy interstitial type pulmonary opacities are seen, which are worst involving the right lower lobe. Mildly enlarged mediastinal and right perihilar lymph nodes are seen, which are considered to be reactive. Additional findings: Moderate to prominent coronary artery calcification Prior granulomatous exposure. Dictated by: Edward Hanson M.D. on 05/02/2024 at 15:52 Approved by: Edward Hanson M.D. on 05/02/2024 at 15:55
[2024-05-02 15:52] LABS: NT-proBNP (BNP-Adult 18+) 1120 pg/mL (<450)
[2024-05-02 15:56] LABS: Allen Test for ABG Passed? Positive; Base Excess ABG 1.5 mmol/L (-2-3); Blood Gas Collection Site Right Radial; Blood Gas Mode Bi-Level Ventilation; Delivery System BiPAP; HCO3 ABG 25 mmol/L (23-27); Oxygen Saturation ABG 95 % (95-100); PCO2 ABG 32.3 mmHg (35-45); PEEP 8; PO2 ABG 70 mmHg (80-100); Pressure Support 6; Respiratory Rate 10; TCO2 ABG 24 mmol/L (23-27); pH ABG 7.49 (7.35-7.45)
--- NOTE | 2024-05-02 16:42 | RT ---
PT TRANSFERED TO CT SCAN AND BACK ON NRB MASK W/O ANY COMPLICATIONS. PT PLACED BACK ON BIPAP POST.
[2024-05-02] MEDS: LORazepam 2 MG/ML INJ 1 MG IV (18:46)
--- NOTE | 2024-05-02 18:56 | PC.NURSE ---
Pt appearing to become agitated around 1814. Pt c/o he has not gotten much sleep. notified. Ativan given.
--- NOTE | 2024-05-02 19:08 | PC.NURSE ---
Reassess; no change
--- NOTE | 2024-05-02 19:08 | PC.NURSE ---
Reassess; pt agigtated w/ Bipap. Pt offered water intermittently. Pt satting well on BIPAP ~ spO2 96%
== END 2024-05-02 19:20 | disposition short-term general hospital (02) ==
PROVIDERS: Emergency Provider Emergency Medicine; PCP Internal Medicine
DX: R41.0 Disorientation, unspecified (principal); J18.9 Pneumonia, unspecified organism; R06.03 Acute respiratory distress; I50.9 Heart failure, unspecified; R00.0 Tachycardia, unspecified; I44.0 Atrioventricular block, first degree; Z98.890 Other specified postprocedural states; Z86.14 Personal history of Methicillin resistant Staphylococcus aureus infection
CPT/HCPCS: 36415; 36600; 70450; 71045; 71275; 80053; 81003; 82805; 83605; 83690; 83880; 84145; 84484; 85025; 85610; 85730; 87040; 87633; 93005; 96361; 96365; 96366; 96367; 96368; 96375; 99284; 99291; J0696; J1940; J2060; Q9967